=== PATIENT | female | born 1980 | race Caucasian/White ===

== ENCOUNTER 2017-03-15 12:52 | Outpatient (CLI) | payer MEDICAID ==
[~2017-03-15] VITALS: Ht 157.5 cm; Wt 85.9 kg
[2017-03-15 12:55] VITALS: BP 124/66; PULSE 86; RESP 18; Ht 157.5 cm; Wt 85.9 kg
--- NOTE | 2017-03-15 17:59 | PN ---
Date/Time of Note Date/Time of Note DATE: 03/15/17 TIME: 17:55 Assessment/Plan Assessment/Plan Assessment/Plan [facility] Progress Note Date of Service: 03/15/2017 Place of Service: [facility] Today's Impression & Plan: Overall doing well and appears stable. No obvious evidence of major postoperative complications or wound problems. Abdomen remains benign. Would above assessments, I recommended the followin. F/u with PCP 2. F/u with us prn Thank you very much for allowing us to participate in the care of this very nice patient and wonderful family. If there are any questions, please feel free to contact me at . Nature presenting problem: High-risk Complexity decision making: High complexity Please note: Spelling or grammatical errors in this note are likely due to EHR/ dictation systems and are not reflective of patient care quality. Occasional wrong-word or sound-alike substitutions may have occurred due to the inherent limitations of voice recognition software. Please read the chart carefully and recognize, using context, where the substitutions have occurred. The chart may also contain mistakes due to difficulties with voice recognition software. Also please note that the dictation timestamp of this note does not necessarily reflected time of the visit for this service. Updated clinical summary: A very pleasant 36-year-old lady with comorbidity of BMI 33, presenting with a clinical picture that is likely due to acute cholecystitis although is a chance that this may be gastritis. S/p an otherwise uncomplicated laparoscopic cholecystectomy with lysis of adhesions at [facility] 02/10/17 with findings of severe acute on chronic purulent cholecystitis with hydrops and pus. Final path showed no malignancy. D/c home on 02/11/17. Comorbidities: 1. Severe acute on chronic purulent cholecystitis with gallbladder hydrops and pus; s/p an otherwise uncomplicated laparoscopic cholecystectomy with lysis of adhesions at [facility] 02/10/17 with findings of severe acute on chronic purulent cholecystitis with hydrops and pus. 2. BMI 33 3. Marijuana use Subjective: No major events or complaints since d/c. No major pain complaints and not on pain medications. No N/V, SOB or CP. + bowel activity Objective: Vitals: reviewed; please also see EHR Physical Exam: Lungs: breathing comfortably without tachypnea; no audible wheezes, rales or rhonchi on gross exam Abd: Soft, non-tender, and non-distended; no peritoneal signs or guarding; incision dressings c/d/i w/o obvious underlying e/e/d/h Skin: Appears pink and feels warm to touch. Neuro: Awake, alert and follows commands appropriately Exam/Review of Systems Vital Signs Vitals Vital Signs Date Time Temp Pulse Resp B/P Pulse Ox O2 Delivery O2 Flow Rate FiO2 03/15/17 12:55 98.2 86 18 124/66 97 Room Air TRACEY TEJADA M.D. Mar 15, 2017 17:59
== END 2017-03-15 17:00 | disposition home or self-care (01) ==
LOC: HPC 12:52
PROVIDERS: ATTEND Transplant Surgery
DX: Z09 Encounter for follow-up examination after completed treatment for conditions other than malignant neoplasm (principal); K81.0 Acute cholecystitis
CPT/HCPCS: G0463